=== PATIENT | male | born 1950 | race African-American/Black ===

== ENCOUNTER 2020-06-04 15:59 | Emergency (ER) | payer OTHER ==
[2020-06-04 16:43] LABS: Basophils % 1.9 % (0-1.3); Hematocrit 38.2 % (39.6-49.0); MPV 8.7 fL (7.6-11.3); RBC Red Blood Cell Count 4.23 M/uL (4.33-5.43)
[2020-06-04 16:46] LABS: Protime INR 1.03
--- NOTE | 2020-06-04 16:47 | RAD REPORT ---
EXAM DESCRIPTION: CT - Ct Stroke Brain Wo Cont - 06/04/2020 4:23 pm CLINICAL HISTORY: Slurred speech COMPARISON: none TECHNIQUE: Computed axial tomography of the head was obtained. All CT scans are performed using dose optimization technique as appropriate and may include automated exposure control or mA/KV adjustment according to patient size. FINDINGS: An intracranial bleed is not seen . No hydrocephalus No extra-axial fluid collection is noted. 4.7 centimeter low-density area within the left temporal/frontal lobe has the appearance of cystic en cephalomalacia probably secondary to an old infarct. 3 centimeter low-density area is present within the left frontal lobe Fluid within the sinuses/ mastoids is not seen. 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 Another c onsideration is that it is chronic as well. MRI of the brain is recommended Joan of the emergency room was notified at 4:38 p.m. June 04, 2020
[2020-06-04] MEDS ORDERED: NA CHLORIDE 0.9% 1,000 ML ONE (16:54)
[2020-06-04] MEDS ORDERED: FOLIC ACID 5 MG/ML VIAL ONE (16:54)
[2020-06-04] MEDS ORDERED: ASPIRIN 81 MG CHEWABLE TABLET ONE (17:10)
--- NOTE | 2020-06-04 17:15 | RAD REPORT ---
EXAM DESCRIPTION: Clem Single View06/04/2020 4:49 pm CLINICAL HISTORY: Hypertension/slurred speech COMPARISON: none FINDINGS: The lungs appear clear of acute infiltrate. The heart is normal size IMPRESSION: No acute abnormalities displayed
--- NOTE | 2020-06-04 17:18 | ER ---
Nurse's Notes [facility] Name: Miguel Dinero Age: 69 yrs Sex: Male : 1950 Arrival Date: 06/04/2020 Time: 16:09 Bed 6 Private MD: Diagnosis: Aphasia following cerebral infarction;Cerebral infarction-left frontal, ischemic, acute;Atrial fibrillation and flutter-new Presentation: 06/04 16:09 Chief complaint: Friend and/or Co-Worker states: pt was out fishing and begin having em slurred speech around [id number], symptoms lasted for about 35-45 minutes, symptoms resolved and went to [facility] because it was the closest thing but pt refused to be transferred so friend brought pt to the ER, VAN negative, pt reports having a previous stroke last year, no symptoms noted at this time. 16:09 Coronavirus screen: Client denies travel out of the [place] in the last 14 days. Ebola em Screen: Patient negative for fever greater than or equal to 101.5 degrees Fahrenheit, and additional compatible Ebola Virus Disease symptoms Patient denies exposure to infectious person. Patient denies travel to an Ebola-affected area in the 21 days before illness onset. No symptoms or risks identified at this time. Initial Sepsis Screen: Does the patient meet any 2 criteria? No. Patient's initial sepsis screen is negative. Does the patient have a suspected source of infection? No. Patient's initial sepsis screen is negative. Risk Assessment: Do you want to hurt yourself or someone else? Patient reports no desire to harm self or others. Onset of symptoms was June 04, 2020. 16:09 Method Of Arrival: Ambulatory em 16:09 Acuity: RADHA 2 em Stroke Activation: Physician: Stroke Attending; Name: ; Notified At: ; Arrived At: Physician: Chief Stroke Resident; Name: ; Notified At: ; Arrived At: Physician: Stroke Resident; Name: ; Notified At: ; Arrived At: Physician: ED Attending; Name: Sven; Notified At: 16:12; Arrived At: 16:12 Physician: ED Resident; Name: ; Notified At: ; Arrived At: Historical: - Allergies: 16:09 No Known Allergies; em - PMHx: 16:09 Hypertension; CVA; Diabetes - NIDDM; em - Immunization history:: Flu vaccine is not up to date. - Social history:: Smoking status: Patient denies any tobacco usage or history of. Screenin:30 Abuse screen: Denies threats or abuse. Nutritional screening: No deficits noted. em Tuberculosis screening: No symptoms or risk factors identified. Fall Risk None identified. Assessment: 16:09 General: Appears in no apparent distress. comfortable, Behavior is calm, cooperative, em appropriate for age. Pain: Denies pain. Neuro: Level of Consciousness is awake, alert, obeys commands, Oriented to person, place, time, situation, Appropriate for age Network/Telecom Engineer are equal bilaterally Moves all extremities. Gait is steady, Speech is normal, Facial symmetry appears normal. Cardiovascular: Capillary refill < 3 seconds Patient's skin is warm and dry. Respiratory: Airway is patent Respiratory effort is even, unlabored, Respiratory pattern is regular, symmetrical. GI: Patient currently denies nausea, vomiting. Derm: Skin is intact, is healthy with good turgor, Skin is pink, warm \T\ dry. Musculoskeletal: Capillary refill < 3 seconds, Range of motion: intact in all extremities. 16:11 Reassessment: Dr. Machuca notified of pt symptoms, received verbal order for code em stroke workup. 16:58 VAN Scoring: Arm Drift: Patients demonstrates NO arm weakness. Patient is VAN Negative. em Patient has been NPO before screening. The patient is alert, and able to follow commands. The patient does not exhibit slurred or garbled speech. The patient is not exhibiting difficulty speaking. The patient does not exhibit difficulty understanding words. The patient is able to swallow own secretions with no drooling or need for suction. Patient tolerated one teaspoon of water. No drooling, immediate coughing, gurgling, or clearing of the throat was noted. The patient tolerated 90mL of water. No drooling, immediate coughing, gurgling, or clearing of the throat was noted. The patient passed the bedside swallow screening. Oral medications may be given as ordered. Contact Physician for further diet orders. Provider notified of bedside swallow screening results: Rakesh Machuca MD. 17:22 T-PA (Activase) Screening: Contraindications: Rapidly improving condition or minor em deficit: Yes. 17:25 Reassessment: Patient appears in no apparent distress at this time. Patient and/or em family updated on plan of care and expected duration. Pain level reassessed. Patient is alert, oriented x 3, equal unlabored respirations, skin warm/dry/pink. 18:31 Reassessment: Patient appears in no apparent distress at this time. Patient and/or em family updated on plan of care and expected duration. Pain level reassessed. Patient is alert, oriented x 3, equal unlabored respirations, skin warm/dry/pink. Vital Signs: 16:09 BP 132 / 89; Pulse 66; Resp 18; Temp 97.5; Pulse Ox 99% on R/A; Weight 92.53 kg; Height em 5 ft. 9 in. (175.26 cm); Pain 0/10; 17:30 BP 149 / 106; Pulse 88; Resp 18; Pulse Ox 99% on R/A; em 18:30 BP 149 / 106; Pulse 84; Resp 18; Pulse Ox 99% on R/A; em 16:09 Body Mass Index 30.13 (92.53 kg, 175.26 cm) em NIH Stroke Scale Scores: 16:09 NIHSS Score: 0 em ED Course: 16:09 Patient arrived in ED. em 16:09 Cameron Farias, RN is Primary Nurse. em 16:09 Arm band placed on. em 16:15 Rakesh Machuca MD is Attending Physician. [facility] 16:23 CT Stroke Brain w/o Contrast In Process Unspecified. EDMS 16:30 Patient has correct armband on for positive identification. Placed in gown. Bed in low em position. Call light in reach. Side rails up X2. quality assurance monitor chassis on. Pulse ox on. NIBP on. 16:30 Initial lab(s) drawn, by tn, sent to lab. Inserted saline lock: 20 gauge in right em antecubital area, using aseptic technique. Blood collected. 16:35 Triage completed. em 16:47 EKG done, by ED staff, reviewed by Rakesh Machuca MD. jb1 16:49 Stroke CXR 1 View In Process Unspecified. EDMS 16:[address] Machuca with MASTER Lai from the [facility]. eb 17:[address] Garcia the neurologist distribution district supervisor for [facility] with Dr. Machuca for eb patient transfer consultation. 17:08 connected the Hospitalist distribution district supervisor for [facility] with Dr. Machuca for patient eb transfer consultation. 17:11 administrative approval given by MASTER Lai/ patient has been accepted to [facility] eb 22 tower bed 2211/ Dr. Ida Yusuf has accepted the patient in transfer/ report to be called to the transfer center at [phone]. 17:20 [facility] called 50 min eta. eb 17:54 Missed attempt(s): 20 gauge in right hand. Bleeding controlled, band aid applied, jl7 catheter tip intact. 17:58 Missed attempt(s): 20 gauge in left antecubital area. Bleeding controlled, band aid jl7 applied, catheter tip intact. 18:00 Inserted saline lock: 22 gauge in left wrist, using aseptic technique. jl7 18:15 CT Head Angio In Process Unspecified. EDMS 18:15 Neck Angio In Process Unspecified. EDMS 18:16 No provider procedures requiring assistance completed. Patient transferred, IV remains em in place. Administered Medications: 16:43 Drug: NS 0.9% 1000 ml Route: IV; Rate: 1 bolus; Site: right antecubital; em 19:07 Follow up: IV Status: Infusion continued upon transfer em 16:43 Drug: foLIC Acid 1 mg Route: IVPB; Site: right antecubital; em 18:00 Follow up: Response: No adverse reaction; IV Status: Completed infusion em 17:01 Drug: Aspirin Chewable Tablet 324 mg Route: PO; em 17:27 Follow up: Response: No adverse reaction em 17:56 Drug: Mucomyst - Acetylcysteine 600 mg Route: PO; em 18:27 Follow up: Response: No adverse reaction em 18:27 Drug: PlaVIX 75 mg Route: PO; em 18:45 Follow up: Response: No adverse reaction em Point of Care Testing: Blood Glucose: 16:30 Blood Glucose: 166 mg/dL; em Ranges: Outcome: 17:18 ER care complete, transfer ordered by MD. olivas 18:34 Transferred by ground EMS to [facility], Transfer form completed. em X-rays sent w/ patient. 18:34 Condition: stable 18:34 Instructed on the need for transfer, Demonstrated understanding of instructions. 18:35 Patient left the ED. em NIH Stroke Scale - NIH Stroke Score Date: 06/04/2020 Time: 16:09 Total Score = 0 1a. Level of Consciousness (LOC) - 0(Alert) 1b. Level of Consciousness (LOC) (Year \T\ Age) - 0(Both) 1c. LOC Commands (Open \T\ Closes Eyes/Switchboard Troubleshooter) - 0(Both) 2. Best Gaze (Lateral Gaze Paresis) - 0(Normal) 3. Visual Field Loss - 0(No visual loss) 4. Facial Palsy - 0(Normal) 5a. Left Arm: Motor (10-second hold) - 0(No drift) 5b. Right Arm: Motor (10-second hold) - 0(No drift) 6a. Left Leg: Motor (5-second hold - always test supine) - 0(No drift) 6b. Right Leg: Motor (5-second hold - always test supine) - 0(No drift) 7. Limb Ataxia (finger/nose \T\ heel/ortiz - test with eyes open) - 0(Absent) 8. Sensory Loss (pinprick arms/legs/face) - 0(Normal) 9. Best Language: Aphasia (description/naming/reading) - 0(No aphasia) 10. Dysarthria (speech clarity - read or repeat words) - 0(Normal) 11. Extinction and Inattention (visual/tactile/auditory/spatial/personal) - 0(No abnormality) Initials: em Signatures: Dispatcher [employer] Vasyl Galvan Corey, MD MD cha Munoz, Edgar RN RN Alma Rosa Biggs RN RN [id number] Yoko Acosta
--- NOTE | 2020-06-04 17:18 | EDPHYS ---
Physician Documentation [facility] Name: Miguel Dinero Age: 69 yrs Sex: Male : 1950 Arrival Date: 06/04/2020 Time: 16:09 Bed 6 Private MD: CARLEY Physician Rakesh Machuca HPI: 06/04 17:00 This 69 yrs old Black Male presents to ER via Ambulatory with complaints of slurred deisy speech at 230 pm, fishing. 17:00 The patient's problem is reported as dysphasia, slurred speech. Onset: The deisy symptoms/episode began/occurred at 14:30. Duration: This was a single incident. Context: the episode(s) was witnessed, by a friend. The symptoms are alleviated by nothing. The symptoms are aggravated by nothing. The patient presents to the emergency department with a speech or higher order brain function problem, aphasia. Onset: The symptoms/episode began/occurred just prior to arrival. Context: occurred outdoors. Associated signs and symptoms: Pertinent positives: This patient does not have any pertinent positives. Severity of symptoms: At their worst the symptoms were mild in the emergency department the symptoms have resolved and did so just prior to arrival. Associated signs and symptoms: The patient has no apparent associated signs or symptoms. Historical: - Allergies: 16:09 No Known Allergies; em - PMHx: 16:09 Hypertension; CVA; Diabetes - NIDDM; em - Immunization history:: Flu vaccine is not up to date. - Social history:: Smoking status: Patient denies any tobacco usage or history of. ROS: 17:04 Constitutional: Negative for fever, chills, and weight loss, Eyes: Negative for injury, deisy pain, redness, and discharge, ENT: Negative for injury, pain, and discharge, Neck: Negative for injury, pain, and swelling, Respiratory: Negative for shortness of breath, cough, wheezing, and pleuritic chest pain, Abdomen/GI: Negative for abdominal pain, nausea, vomiting, diarrhea, and constipation, Back: Negative for injury and pain, : Negative for injury, bleeding, discharge, and swelling, MS/Extremity: Negative for injury and deformity, Skin: Negative for injury, rash, and discoloration, Psych: Negative for depression, anxiety, suicide ideation, homicidal ideation, and hallucinations, Allergy/Immunology: Negative for hives, rash, and allergies, Endocrine: Negative for neck swelling, polydipsia, polyuria, polyphagia, and marked weight changes, Hematologic/Lymphatic: Negative for swollen nodes, abnormal bleeding, and unusual bruising. 17:04 Cardiovascular: Negative for chest pain, edema, orthopnea, palpitations, paroxysmal nocturnal dyspnea. 17:04 Cardiovascular: Exam: 17:04 Radiologist reports: 4.7 cm old left temporal/ frontal old and 3 cm low density left deisy frontal lobe, possibllyacute 17:04 Constitutional: This is a well developed, well nourished patient who is awake, alert, and in no acute distress. Head/Face: Normocephalic, atraumatic. Eyes: Pupils equal round and reactive to light, extra-ocular motions intact. Lids and lashes normal. Conjunctiva and sclera are non-icteric and not injected. Cornea within normal limits. Periorbital areas with no swelling, redness, or edema. ENT: Nares patent. No nasal discharge, no septal abnormalities noted. Tympanic membranes are normal and external auditory canals are clear. Oropharynx with no redness, swelling, or masses, exudates, or evidence of obstruction, uvula midline. Mucous membranes moist. Neck: Trachea midline, no thyromegaly or masses palpated, and no cervical lymphadenopathy. Supple, full range of motion without nuchal rigidity, or vertebral point tenderness. No Meningismus. Chest/axilla: Normal chest wall appearance and motion. Nontender with no deformity. No lesions are appreciated. Respiratory: Lungs have equal breath sounds bilaterally, clear to auscultation and percussion. No rales, rhonchi or wheezes noted. No increased work of breathing, no retractions or nasal flaring. Abdomen/GI: Soft, non-tender, with normal bowel sounds. No distension or tympany. No guarding or rebound. No evidence of tenderness throughout. Back: No spinal tenderness. No costovertebral tenderness. Full range of motion. Male : Normal genitalia with no discharge or lesions. Skin: Warm, dry with normal turgor. Normal color with no rashes, no lesions, and no evidence of cellulitis. MS/ Extremity: Pulses equal, no cyanosis. Neurovascular intact. Full, normal range of motion. Neuro: Awake and alert, GCS 15, oriented to person, place, time, and situation. Cranial nerves II-XII grossly intact. Motor strength 5/5 in all extremities. Sensory grossly intact. Cerebellar exam normal. Normal gait. Psych: Awake, alert, with orientation to person, place and time. Behavior, mood, and affect are within normal limits. 17:04 Cardiovascular: Rate: normal, Rhythm: irregularly irregular, Pulses: Pulses are 4+ in bilateral radial, brachial, femoral, popliteal, posterior tibial and and dorsalis pedis arteries.. Heart sounds: normal, Edema: is not appreciated, JVD: is not appreciated. Vital Signs: 16:09 BP 132 / 89; Pulse 66; Resp 18; Temp 97.5; Pulse Ox 99% on R/A; Weight 92.53 kg; Height em 5 ft. 9 in. (175.26 cm); Pain 0/10; 17:30 BP 149 / 106; Pulse 88; Resp 18; Pulse Ox 99% on R/A; em 18:30 BP 149 / 106; Pulse 84; Resp 18; Pulse Ox 99% on R/A; em 16:09 Body Mass Index 30.13 (92.53 kg, 175.26 cm) em NIH Stroke Scale Scores: 16:09 NIHSS Score: 0 em MDM: 16:23 Patient medically screened. [facility] 17:12 Differential diagnosis: CVA, TIA, metabolic disorder, drug effects. Data reviewed: [facility] vital signs, nurses notes, lab test result(s), EKG, radiologic studies, CT scan, plain films. Data interpreted: policy change clerks supervisor: rate is 74 beats/min, rhythm is atrial fibrillation, Pulse oximetry: on room air is 99 %. Test interpretation: by ED physician or midlevel provider: ECG, plain radiologic studies. Counseling: I had a detailed discussion with the patient and/or guardian regarding: the historical points, exam findings, and any diagnostic results supporting the discharge/admit diagnosis, the presence of at least one elevated blood pressure reading (>120/80) during this emergency department visit, lab results, radiology results. Physician consultation: Marcus Rodriguez MD after a discussion of the case, a recommendation for transfer for higher level of care is made, no tpa, ct shows infarct that could explain patients symptoms. 17:14 ED course: roberto fletcher ct findings, timwe frame, afib new onset, no changes, no deisy tpa,aspirin only plus folic acid and liter bolus. 17:58 ED course: dr fletcher again addressed no heparin. [facility] 06/04 16:17 Order name: Basic Metabolic Panel; Complete Time: 17:32 06/04 16:17 Order name: CBC with Diff; Complete Time: 17:32 06/04 16:17 Order name: Protime (+inr); Complete Time: 16:50 06/04 16:17 Order name: Ptt, Activated; Complete Time: 16:50 06/04 16:40 Order name: Glucose, Ancillary Testing; Complete Time: 16:44 EDPR 06/04 16:44 Order name: Manual Differential; Complete Time: 17:32 [facility] 06/04 16:17 Order name: CT Stroke Brain w/o Contrast; Complete Time: 16:50 06/04 16:17 Order name: Stroke CXR 1 View; Complete Time: 17:32 06/04 16:57 Order name: CT Head Angio [facility] 06/04 16:58 Order name: Neck Angio [facility] 06/04 17:33 Order name: TSH [facility] 06/04 16:17 Order name: EKG; Complete Time: 16:17 06/04 16:17 Order name: Accucheck; Complete Time: 16:37 06/04 16:17 Order name: Cardiac monitoring; Complete Time: 16:43 06/04 16:17 Order name: EKG - Nurse/Tech; Complete Time: 16:43 06/04 16:17 Order name: IV Saline Lock; Complete Time: 16:37 06/04 16:17 Order name: Labs collected and sent; Complete Time: 16:37 06/04 16:17 Order name: NPO; Complete Time: 16:17 06/04 16:17 Order name: O2 Per Protocol; Complete Time: 16:17 06/04 16:17 Order name: O2 Sat Monitoring; Complete Time: 16:17 06/04 16:17 Order name: Stroke Swallow Screen; Complete Time: 17:01 em Administered Medications: 16:43 Drug: NS 0.9% 1000 ml Route: IV; Rate: 1 bolus; Site: right antecubital; em 19:07 Follow up: IV Status: Infusion continued upon transfer em 16:43 Drug: foLIC Acid 1 mg Route: IVPB; Site: right antecubital; em 18:00 Follow up: Response: No adverse reaction; IV Status: Completed infusion em 17:01 Drug: Aspirin Chewable Tablet 324 mg Route: PO; em 17:27 Follow up: Response: No adverse reaction em 17:56 Drug: Mucomyst - Acetylcysteine 600 mg Route: PO; em 18:27 Follow up: Response: No adverse reaction em 18:27 Drug: PlaVIX 75 mg Route: PO; em 18:45 Follow up: Response: No adverse reaction em Point of Care Testing: Blood Glucose: 16:30 Blood Glucose: 166 mg/dL; em Ranges: Critical Glucose Levels:Adult <50 mg/dl or >400 mg/dl <40 mg/dl or >180 mg/dl Disposition: 06/04/20 17:18 Transfer ordered to [facility]. Diagnosis are Aphasia following cerebral infarction, Cerebral infarction - left frontal, ischemic, acute, Atrial fibrillation and flutter - new. - Reason for transfer: Higher level of care. - Accepting physician is to [facility], dr fletcher via dr wright. - Condition is Fair. - Problem is new. - Symptoms have improved. Critical care time excluding procedures: 17:20 Critical care time: Bedside Care: 20 minutes, Consultation: 10 minutes. Total time: 30 deisy minutes NIH Stroke Scale - NIH Stroke Score Date: 06/04/2020 Time: 16:09 Total Score = 0 1a. Level of Consciousness (LOC) - 0(Alert) 1b. Level of Consciousness (LOC) (Year \T\ Age) - 0(Both) 1c. LOC Commands (Open \T\ Closes Eyes/Farm Management Adviser) - 0(Both) 2. Best Gaze (Lateral Gaze Paresis) - 0(Normal) 3. Visual Field Loss - 0(No visual loss) 4. Facial Palsy - 0(Normal) 5a. Left Arm: Motor (10-second hold) - 0(No drift) 5b. Right Arm: Motor (10-second hold) - 0(No drift) 6a. Left Leg: Motor (5-second hold - always test supine) - 0(No drift) 6b. Right Leg: Motor (5-second hold - always test supine) - 0(No drift) 7. Limb Ataxia (finger/nose \T\ heel/ortiz - test with eyes open) - 0(Absent) 8. Sensory Loss (pinprick arms/legs/face) - 0(Normal) 9. Best Language: Aphasia (description/naming/reading) - 0(No aphasia) 10. Dysarthria (speech clarity - read or repeat words) - 0(Normal) 11. Extinction and Inattention (visual/tactile/auditory/spatial/personal) - 0(No abnormality) Initials: em Signatures: Dispatcher [employer] Rakesh French MD MD cha Munoz, Edgar, RN RN em Corrections: (The following items were deleted from the chart) 17:19 17:18 06/04/2020 17:18 Transfer ordered to [facility]. Diagnosis is Aphasia following cerebral infarction; Cerebral infarction - left frontal, ischemic, acute. Reason for transfer: Higher level of care. Accepting physician is to [facility], dr fletcher via dr wright. Condition is Fair. Problem is new. Symptoms have improved. deisy 18:35 17:19 06/04/2020 17:[address] [facility]. Diagnosis is Aphasia following cerebral infarction; Cerebral infarction - left frontal, ischemic, acute; Atrial fibrillation and flutter - new. Reason for transfer: Higher level of care. [facility] Condition is Fair. Problem is new. Symptoms have improved. deisy
[2020-06-04 17:29] LABS: Blood Morphology Comment NOT SEEN (NOT SEEN); Platelet Estimate ADEQ
[2020-06-04] MEDS ORDERED: ACETYLCYST 6,000 MG/30 ML VIAL ONE (17:58)
[2020-06-04] MEDS ORDERED: CLOPIDOGREL 75 MG TABLET ONE (18:19)
--- NOTE | 2020-06-04 18:31 | RAD REPORT ---
EXAM DESCRIPTION: Sera Angio06/04/2020 6:15 pm CLINICAL HISTORY: Slurred speech COMPARISON: None TECHNIQUE: 50 cc Isovue 370 was administered intravenously. 3D MIP reconstruction performed All CT scans are performed using dose optimization technique as appropriate and may include automated exposure control or mA/KV adjustment according to patient size. FINDINGS: Mild plaque within the internal carotid arteries bilaterally. The common and external carotid arteries unremarkable The left vertebral artery is little bit more dominant than the right. No significant stenosis. IMPRESSION: Mild plaque within the internal carotid arteries bilaterally NASCET criteria used. Mild 0-49% stenosis Moderate 50-69% stenosis Severe 70-99% stenosis
--- NOTE | 2020-06-04 18:38 | RAD REPORT ---
EXAM DESCRIPTION: CTHead angio06/04/2020 6:15 pm CLINICAL HISTORY: TIA COMPARISON: None TECHNIQUE: CT angiogram of the head was obtained. 3D MIPS reconstruction performed. All CT scans are performed using dose optimization technique as appropriate and may include automated exposure control or mA/KV adjustment according to patient size. FINDINGS: The basilar, internal carotid, anterior cerebral, middle cerebral and posterior cerebral a rteries are normal caliber. An aneurysm is not seen. 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 IMPRESSION: No acute abnormality is displayed
[2020-06-04 19:13] VITALS: TEMP 97.5; O2SAT 99
[2020-06-04 19:14] VITALS: BP 149/106
--- NOTE | 2020-06-06 07:26 | EKG ---
Test Date: 2020-06-04 Test Time: 16:36:20 Musical Therapist: AYESHA MEASUREMENT RESULTS: Intervals: Rate: 74 GA: QRSD: 100 QT: 364 QTc: 404 [place]: P: GA: QRS: 57 T: 249 INTERPRETIVE STATEMENTS: Atrial fibrillation T wave abnormality, consider inferolateral ischemia or digitalis effect Abnormal ECG No previous ECG available for comparison Electronically Signed On 06-06-20 07:23:43 SUPERVISOR PROP MAKING by Maximino Patterson
== END 2020-06-04 18:35 | disposition short-term general hospital (02) ==
LOC: ER 15:59
DX: I63.9 Cerebral infarction, unspecified (principal); R29.700 NIHSS score 0; I48.91 Unspecified atrial fibrillation; I48.92 Unspecified atrial flutter; I10 Essential (primary) hypertension; Z86.73 Personal history of transient ischemic attack (TIA), and cerebral infarction without residual deficits
CPT/HCPCS: 96365; 96361; 93005; 85025; 80048; 36415; 85610; 82947; 85730; 84443; 70496; 70498; 70450; 71045; 99285; Q9967; J7030